=== PATIENT | female | born 1935 | race Caucasian/White ===

== ENCOUNTER 2023-08-25 22:48 | Emergency (ER) | payer SELFPAY ==
[2023-08-25 23:06] VITALS: BP 169/91; PULSE 60; RESP 18; TEMP 97.5; BMI 30.4
[2023-08-26] MEDS ORDERED: ACETAMINOPHEN 325 MG TABLET (FP) PO ONE (00:45)
[2023-08-26] MEDS ORDERED: ACETAMINOPHEN 325 MG TABLET (FP) ONE (00:46)
[2023-08-26] MEDS ORDERED: DIPHTH,PERTUSS(ACELL),TET 0.5 ML DISP.SYRIN IM ONE ×2 (00:47→01:00)
== END 2023-08-26 01:08 | disposition home or self-care (01) ==
LOC: JER 22:48
PROC: 3E0234Z Introduction of Serum, Toxoid and Vaccine into Muscle, Percutaneous Approach (ICD-10-PCS; principal; 2023-08-26)
DX: S81.811A Laceration without foreign body, right lower leg, initial encounter (principal); W18.2XXA Fall in (into) shower or empty bathtub, initial encounter
CPT/HCPCS: 73590-TC-RT-FY; 90715; 99283-25

== ENCOUNTER 2023-08-28 09:50 | Emergency (ER) | payer SELFPAY ==
[2023-08-28 10:18] VITALS: RESP 17; BMI 30.7
[2023-08-28 11:07] VITALS: BP 154/79; PULSE 57; TEMP 98.3
== END 2023-08-28 11:10 | disposition home or self-care (01) ==
LOC: JERFT 09:50
DX: S81.801D Unspecified open wound, right lower leg, subsequent encounter (principal); Z48.01 Encounter for change or removal of surgical wound dressing; M79.661 Pain in right lower leg; W19.XXXD Unspecified fall, subsequent encounter
CPT/HCPCS: 93005; 93010; 99283-25

== ENCOUNTER 2023-09-07 12:49 | Emergency (ER) | payer SELFPAY ==
[2023-09-07 13:17] VITALS: BP 154/80; PULSE 72; RESP 18; TEMP 98.5; BMI 30.7
[2023-09-07] MEDS ORDERED: ACETAMINOPHEN 1000 MG/100 ML BAG IVPB ONE (15:33)
[2023-09-07] MEDS ORDERED: ACETAMINOPHEN INJECTION 100 ML IVPB ONE (15:53)
[2023-09-07 16:11] LABS: BASO % 0.2 % (0-2.0); EOS % 1.2 % (0-4.5); HEMOGLOBIN 13.6 GM/dL (10.7-15.3); LYMPH % 24.8 % (8-40); MCH 33.9 pg (25.7-33.7); MEAN CELL VOLUME 99.7 fl (80-96); MEAN PLT VOLUME 8.1 fl (7.5-11.1); MONO % 10.4 % (3.8-10.2); NEUT % 63.4 % (42.8-82.8); PLATELET COUNT 262 10^3/uL (134-434); RBC 4.01 M/mm3 (3.60-5.2); RDW 12.7 % (11.6-15.6); WHITE BLOOD COUNT 7.9 K/mm3 (4.0-10.0)
[2023-09-07 16:21] LABS: POTASSIUM 3.9 mmol/L (3.5-5.1)
[2023-09-07 16:23] LABS: CALCIUM 8.7 mg/dL (8.5-10.1)
[2023-09-07 16:24] LABS: ALBUMIN 3.2 g/dl (3.4-5.0); BLOOD UREA NITROGEN 28.6 mg/dL (7-18)
[2023-09-07 16:29] LABS: BILIRUBIN,TOTAL 0.6 mg/dL (0.2-1); TOT PROT 7.2 g/dl (6.4-8.2)
[2023-09-07 16:49] LABS: ERYTHROCYTE SEDIMENTATION RATE 33 mm/hr (0-30)
[2023-09-07] MEDS ORDERED: DALBAVANCIN HCL 1,500 MG in DEXTROSE 5%-WATER - 500 ML IVPB ONE (17:29)
[2023-09-07] MEDS ORDERED: DALBAVANCIN HCL 500 MG VIAL (RESTRICTED TO ID ONLY) IVPB ONE (17:43)
== END 2023-09-07 18:51 | disposition home or self-care (01) ==
LOC: JER 12:49
PROC: 3E03329 Introduction of Other Anti-infective into Peripheral Vein, Percutaneous Approach (ICD-10-PCS; principal; 2023-09-07)
PROC: 3E033NZ Introduction of Analgesics, Hypnotics, Sedatives into Peripheral Vein, Percutaneous Approach (ICD-10-PCS; 2023-09-07)
DX: L03.115 Cellulitis of right lower limb (principal); S81.801A Unspecified open wound, right lower leg, initial encounter
CPT/HCPCS: 36415; 73590-TC-RT-FY; 80053; 85025; 85651; 86140; 99284-25; J0875